=== PATIENT | female | born 1960 | race Caucasian/White ===

== ENCOUNTER 2022-05-05 11:13 | Inpatient (IN) | payer OTHER ==
[~2022-05-05] VITALS: Ht 157.5 cm; Wt 65.9 kg
[2022-05-05 12:13] LABS: BASOPHILS % (AUTO) 0.4 % (0-1); EOSINOPHILS # (AUTO) 0.1 X10'3 (0-0.9); EOSINOPHILS % (AUTO) 0.7 % (0-6); HEMATOCRIT 43.9 % (35.0-45.0); HEMOGLOBIN 14.8 g/dl (12.0-16.0); LYMPHOCYTES # (AUTO) 1.4 X10'3 (1.1-4.8); LYMPHOCYTES % (AUTO) 12.3 % (21-51); MEAN CORPUSCULAR HEMOGLOBIN 29.4 PG (27.0-31.0); MEAN CORPUSCULAR HGB CONC 33.8 g/dL (33.0-36.5); MEAN CORPUSCULAR VOLUME 87.1 FL (78-98); MONOCYTES # (AUTO) 2.2 X10'3 (0-0.9); MONOCYTES % (AUTO) 18.8 % (2-12); NEUTROPHILS # (AUTO) 7.9 X10'3 (1.8-7.7); NEUTROPHILS % (AUTO) 67.8 % (42-75); PLATELET COUNT 483 X10'3 (140-440); RED BLOOD COUNT 5.04 X10'6 (4.20-5.60); RED CELL DISTRIBUTION WIDTH 13.3 % (11.5-14.5); WHITE BLOOD COUNT 11.7 X10'3 (4.5-11.0)
[2022-05-05 12:27] LABS: LARGE PLATELETS FEW; PLATELET ESTIMATE INCREASED; TOTAL CELLS COUNTED 100
[2022-05-05 12:28] LABS: ALANINE AMINOTRANSFERASE 17 U/L (12-78); ALBUMIN 3.8 G/DL (3.4-5.0); ALBUMIN/GLOBULIN RATIO 1.1 (1.1-1.5); ALKALINE PHOSPHATASE 46 IU/L (46-116); ANION GAP 8 (8-16); ASPARTATE AMINO TRANSFERASE 16 U/L (10-37); BLOOD UREA NITROGEN 30 MG/DL (7-18); BUN/CREATININE RATIO 33.3 (6.6-38.0); CALCIUM 9.2 MG/DL (8.5-10.1); CHLORIDE 92 MMOL/L (99-107); GLUCOSE 103 MG/DL (70-104); LIPASE 273 U/L (73-393); POTASSIUM 4.1 MMOL/L (3.5-5.1); SODIUM 131 MMOL/L (135-145); TOTAL PROTEIN 7.3 G/DL (6.4-8.2); eGFR 63 ML/MIN
[2022-05-05] MEDS ORDERED: iohexol 300mg/ml 100ml inj. ONE (18:30)
[2022-05-05] MEDS ORDERED: acetaminophen 325mg tablet PO ONE (19:40)
[2022-05-05 19:57] LABS: CLARITY,URINE CLEAR (Clear); COLOR,URINE YELLOW (Yellow); GLUCOSE, URINE NEGATIVE (Neg); KETONES,URINE 15 mg/dl (Neg); LEUKOCYTE ESTERASE ,URINE NEGATIVE (Neg); NITRITES, URINE NEGATIVE (Neg); OCCULT BLOOD,URINE TRACE-INTACT (Neg); PROTEIN,URINE NEGATIVE (Neg); UROBILINOGEN,URINE 0.2 E.U/dL (0.2-1.0)
[2022-05-05 19:59] LABS: URINE HCG NEGATIVE (NEG)
[2022-05-05 20:01] LABS: UA COLLECTION TYPE VOIDED
[2022-05-05 20:07] LABS: RBC,URINE 0-2 /HPF (0-2)
[2022-05-05 20:11] LABS: BACTERIA,URINE FEW /HPF (Neg)
[2022-05-05 20:12] LABS: SQUAMOUS EPITHELIAL CELL,UR FEW /LPF (FEW)
[2022-05-05] MEDS ORDERED: mag hydrox/Alum hydrox/simeth 30ml oral suspension PO PRN (22:15)
[2022-05-05] MEDS ORDERED: magnesium hydroxide 30ml (MOM) UD suspension PO PRN (22:15)
[2022-05-05] MEDS ORDERED: HYDROcodone/acetaminophen 10/325mg tab PO PRN (22:15)
[2022-05-05] MEDS ORDERED: HYDROmorphone inj. 0.5 MG/0.5 ML DISP.SYRIN IV PRN (22:15)
[2022-05-05] MEDS ORDERED: acetaminophen 325mg tablet PO PRN ×2 (22:15)
[2022-05-05] MEDS ORDERED: ondansetron/PF 4mg/2ml inj IV PRN (22:15)
[2022-05-05] MEDS ORDERED: bisacodyl 10mg suppository rectal RC PRN (22:15)
[2022-05-05] MEDS ORDERED: ondansetron 4mg rapidly disintigrating tab PO PRN (22:15)
[2022-05-05] MEDS ORDERED: HYDROcodone/acetaminophen 5mg/325mg tablet PO PRN (22:15)
[2022-05-05] MEDS ORDERED: diphenhydrAMINE 50 mg/ml inj IV PRN (22:15)
[2022-05-05] MEDS ORDERED: diphenhydrAMINE 25mg capsule PO PRN (22:15)
[2022-05-05] MEDS ORDERED: morphine 2 MG/ML inj. syringe IV PRN ×2 (22:15)
[2022-05-05] MEDS ORDERED: acetaminophen 650mg rectal suppository RC PRN (22:15)
[2022-05-05] MEDS: normal saline 1000ml 1,000 ML IV SCH (22:33)
[2022-05-05 23:08] LABS: APTT 32 SECONDS (22-32)
[2022-05-05 23:18] LABS: CREATINE KINASE 35 U/L (26-192); MAGNESIUM 2.1 MG/DL (1.5-2.4); PHOSPHORUS 3.3 MG/DL (2.3-4.5)
[2022-05-06] MEDS ORDERED: LISI10TA27 PO (03:11)
[2022-05-06] MEDS ORDERED: CLOB25SO7 TOP (03:11)
[2022-05-06] MEDS: pantoprazole 40mg Tablet.DR PO SCH (06:23)
[2022-05-06] MEDS: heparin, porcine 5000 units/ml vial SQ SCH ×2 (06:23→23:30)
[2022-05-06] MEDS ORDERED: docusate sod 100mg capsule PO SCH (08:00)
[2022-05-06 08:15] LABS: BASOPHILS % (AUTO) 0.3 % (0-1); EOSINOPHILS # (AUTO) 0.1 X10'3 (0-0.9); EOSINOPHILS % (AUTO) 1.3 % (0-6); HEMATOCRIT 40.4 % (35.0-45.0); HEMOGLOBIN 13.6 g/dl (12.0-16.0); LYMPHOCYTES # (AUTO) 1.5 X10'3 (1.1-4.8); LYMPHOCYTES % (AUTO) 14.4 % (21-51); MEAN CORPUSCULAR HEMOGLOBIN 29.5 PG (27.0-31.0); MEAN CORPUSCULAR HGB CONC 33.7 g/dL (33.0-36.5); MEAN CORPUSCULAR VOLUME 87.3 FL (78-98); MEAN PLATELET VOLUME 8.1 FL (7.4-10.4); MONOCYTES # (AUTO) 1.9 X10'3 (0-0.9); MONOCYTES % (AUTO) 18.1 % (2-12); NEUTROPHILS # (AUTO) 6.9 X10'3 (1.8-7.7); NEUTROPHILS % (AUTO) 65.9 % (42-75); PLATELET COUNT 371 X10'3 (140-440); RED BLOOD COUNT 4.62 X10'6 (4.20-5.60); RED CELL DISTRIBUTION WIDTH 13.4 % (11.5-14.5); WHITE BLOOD COUNT 10.5 X10'3 (4.5-11.0)
[2022-05-06 08:25] LABS: ALANINE AMINOTRANSFERASE 12 U/L (12-78); ALBUMIN 3.2 G/DL (3.4-5.0); ALBUMIN/GLOBULIN RATIO 1.1 (1.1-1.5); ALKALINE PHOSPHATASE 40 IU/L (46-116); ANION GAP 7 (8-16); ASPARTATE AMINO TRANSFERASE 18 U/L (10-37); BILIRUBIN,TOTAL 0.7 MG/DL (0.1-1.0); BLOOD UREA NITROGEN 23 MG/DL (7-18); BUN/CREATININE RATIO 33.3 (6.6-38.0); CALCIUM 8.7 MG/DL (8.5-10.1); CHLORIDE 95 MMOL/L (99-107); CREATININE 0.69 MG/DL (0.40-0.90); GLUCOSE 79 MG/DL (70-104); POTASSIUM 3.4 MMOL/L (3.5-5.1); SODIUM 132 MMOL/L (135-145); TOTAL CARBON DIOXIDE 29.7 MMOL/L (24-32); eGFR 86 ML/MIN
[2022-05-06] MEDS: normal saline 1000ml 1,000 ML IV SCH ×2 (08:59→19:05)
[2022-05-06] MEDS: lisinopril 10 MG tablet PO SCH (10:13)
[2022-05-06] MEDS: clobetasol propionate ointment 15gm TP SCH (10:14)
--- NOTE | 2022-05-06 12:39 | NUR ---
PT able to tollerate a cup of apple juice. Denies any n/v post drinking 8oz of fluids
--- NOTE | 2022-05-06 14:00 | NUR ---
PT HAD TO BE MOVED OUT OF [facility] INTO [facility]. PT IS STABLE, NO NOTED DISCOMFORT AT PRESENT.
--- NOTE | 2022-05-06 16:00 | NUR ---
PT'S DAUGHTER IS AT BEDSIDE, PT REQUESTING SOMETHING TO DRINK AND A COOL CLOTH FOR HER HEAD. PT PROVIDED A PITCHER OF WATER AND THE REQUESTED COOL CLOTH. PT CONTINUE TO BE STABLE, NO S/S OF DISTRESS NOTED.
[2022-05-07 04:37] LABS: BASOPHILS % (AUTO) 0.4 % (0-1); EOSINOPHILS # (AUTO) 0.2 X10'3 (0-0.9); EOSINOPHILS % (AUTO) 2.7 % (0-6); HEMATOCRIT 38.4 % (35.0-45.0); HEMOGLOBIN 12.9 g/dl (12.0-16.0); LYMPHOCYTES # (AUTO) 1.4 X10'3 (1.1-4.8); LYMPHOCYTES % (AUTO) 19.2 % (21-51); MEAN CORPUSCULAR HEMOGLOBIN 29.3 PG (27.0-31.0); MEAN CORPUSCULAR HGB CONC 33.5 g/dL (33.0-36.5); MEAN CORPUSCULAR VOLUME 87.4 FL (78-98); MEAN PLATELET VOLUME 8.8 FL (7.4-10.4); MONOCYTES # (AUTO) 1.2 X10'3 (0-0.9); MONOCYTES % (AUTO) 15.9 % (2-12); NEUTROPHILS # (AUTO) 4.5 X10'3 (1.8-7.7); NEUTROPHILS % (AUTO) 61.8 % (42-75); PLATELET COUNT 380 X10'3 (140-440); RED CELL DISTRIBUTION WIDTH 13.1 % (11.5-14.5); WHITE BLOOD COUNT 7.3 X10'3 (4.5-11.0)
[2022-05-07 04:50] LABS: ALANINE AMINOTRANSFERASE 16 U/L (12-78); ALBUMIN 3.2 G/DL (3.4-5.0); ALBUMIN/GLOBULIN RATIO 1.1 (1.1-1.5); ALKALINE PHOSPHATASE 39 IU/L (46-116); ANION GAP 6 (8-16); ASPARTATE AMINO TRANSFERASE 14 U/L (10-37); BILIRUBIN,TOTAL 0.5 MG/DL (0.1-1.0); BLOOD UREA NITROGEN 13 MG/DL (7-18); BUN/CREATININE RATIO 19.1 (6.6-38.0); CALCIUM 8.7 MG/DL (8.5-10.1); CHLORIDE 100 MMOL/L (99-107); CREATININE 0.68 MG/DL (0.40-0.90); GLUCOSE 90 MG/DL (70-104); POTASSIUM 3.5 MMOL/L (3.5-5.1); SODIUM 137 MMOL/L (135-145); TOTAL CARBON DIOXIDE 31.1 MMOL/L (24-32); TOTAL PROTEIN 6.1 G/DL (6.4-8.2); eGFR 87 ML/MIN
[2022-05-07 05:21] LABS: TOTAL CELLS COUNTED 100
[2022-05-07 05:22] LABS: PLATELET ESTIMATE NORMAL
[2022-05-07] MEDS: normal saline 1000ml 1,000 ML IV SCH ×2 (07:25→20:45)
[2022-05-07] MEDS: clobetasol propionate ointment 15gm TP SCH (08:00)
[2022-05-07] MEDS: lisinopril 10 MG tablet PO SCH ×2 (08:00→08:42)
--- NOTE | 2022-05-07 08:40 | NUR ---
Patient in room ED 14. I have received report from [facility] and had the opportunity to ask questions and assume patient care.
[2022-05-07] MEDS: pantoprazole 40mg Tablet.DR PO SCH (08:43)
[2022-05-07] MEDS: heparin, porcine 5000 units/ml vial SQ SCH ×2 (08:44→20:12)
[2022-05-07] MEDS: ciprofloxacin 250mg tablet PO SCH ×4 (09:15→20:12)
[2022-05-07 10:30] VITALS: BP 114/61
--- NOTE | 2022-05-07 18:40 | NUR ---
Problems reprioritized. Patient report given, questions answered & plan of care reviewed with SUDHA LERO[facility].
[2022-05-07] MEDS: diatr meglu/diatrizoate 30ml oral sol.-(3 dose) bottle PO SCH (21:18)
[2022-05-07 22:00] VITALS: BP 105/63
[2022-05-08 06:00] VITALS: BP_SYST 104; BP_SYST 119; BP_DIAS 59; BP_DIAS 67
--- NOTE | 2022-05-08 06:26 | NUR ---
Problems reprioritized. Patient report given, questions answered & plan of care reviewed with Tarcy LERO[facility]. Addendum: 05/08/22 at 0626 by Ludmila Morrison RN Amended: Links added.
[2022-05-08 06:39] LABS: BASOPHILS % (AUTO) 0.5 % (0-1); EOSINOPHILS # (AUTO) 0.2 X10'3 (0-0.9); EOSINOPHILS % (AUTO) 3.8 % (0-6); HEMATOCRIT 32.8 % (35.0-45.0); HEMOGLOBIN 11.3 g/dl (12.0-16.0); LYMPHOCYTES # (AUTO) 1.7 X10'3 (1.1-4.8); LYMPHOCYTES % (AUTO) 29.9 % (21-51); MEAN CORPUSCULAR HEMOGLOBIN 30.3 PG (27.0-31.0); MEAN CORPUSCULAR HGB CONC 34.3 g/dL (33.0-36.5); MEAN CORPUSCULAR VOLUME 88.4 FL (78-98); MEAN PLATELET VOLUME 9.3 FL (7.4-10.4); MONOCYTES # (AUTO) 0.9 X10'3 (0-0.9); MONOCYTES % (AUTO) 14.9 % (2-12); NEUTROPHILS # (AUTO) 2.9 X10'3 (1.8-7.7); NEUTROPHILS % (AUTO) 50.9 % (42-75); PLATELET COUNT 298 X10'3 (140-440); RED BLOOD COUNT 3.72 X10'6 (4.20-5.60); WHITE BLOOD COUNT 5.7 X10'3 (4.5-11.0)
[2022-05-08 06:49] LABS: ALANINE AMINOTRANSFERASE 16 U/L (12-78); ALBUMIN 2.7 G/DL (3.4-5.0); ALKALINE PHOSPHATASE 35 IU/L (46-116); ANION GAP 7 (8-16); ASPARTATE AMINO TRANSFERASE 17 U/L (10-37); BILIRUBIN,TOTAL 0.3 MG/DL (0.1-1.0); BLOOD UREA NITROGEN 9 MG/DL (7-18); BUN/CREATININE RATIO 15.3 (6.6-38.0); CALCIUM 8.4 MG/DL (8.5-10.1); CHLORIDE 106 MMOL/L (99-107); CREATININE 0.59 MG/DL (0.40-0.90); GLUCOSE 93 MG/DL (70-104); POTASSIUM 3.8 MMOL/L (3.5-5.1); SODIUM 141 MMOL/L (135-145); TOTAL CARBON DIOXIDE 27.9 MMOL/L (24-32); TOTAL PROTEIN 5.3 G/DL (6.4-8.2); eGFR > 90 ML/MIN
[2022-05-08] MEDS: clobetasol propionate ointment 15gm TP SCH (08:00)
[2022-05-08] MEDS: lisinopril 10 MG tablet PO SCH (08:43)
[2022-05-08] MEDS: pantoprazole 40mg Tablet.DR PO SCH (08:43)
[2022-05-08] MEDS: heparin, porcine 5000 units/ml vial SQ SCH (08:44)
[2022-05-08] MEDS: diatr meglu/diatrizoate 30ml oral sol.-(3 dose) bottle PO SCH ×2 (08:44→10:10)
[2022-05-08] MEDS ORDERED: CIPR250T4 PO (08:54)
[2022-05-08] MEDS ORDERED: iohexol 300mg/ml 100ml inj. ONE (09:07)
[2022-05-08 10:00] VITALS: BP 114/55
[2022-05-08] MEDS: ciprofloxacin 250mg tablet PO SCH (10:10)
--- NOTE | 2022-05-08 11:56 | NUR ---
PAGER ID: [phone] MESSAGE: Tracy Surg [phone] Re: [place] [id number] report up she would like to know if she can eat
--- NOTE | 2022-05-08 16:00 | NUR ---
Patient discharge instructions reviewed with patient and patient verbalized understanding. Patients IV dc'd cannula intact. Patient states she has all her belongings. Patient was taken to vehicle via wheelchair.
== END 2022-05-08 15:30 | disposition home or self-care (01) | DRG 389 ==
LOC: ER 11:14 → ED HOLD 22:16 → EDBEDREQ 05-07 04:56 → SUR 3N 05-07 10:05
PROVIDERS: ADMIT Family Medicine; ATTEND Internal Medicine
PROC: 0D9670Z Drainage of Stomach with Drainage Device, Via Natural or Artificial Opening (ICD-10-PCS; principal; 2022-05-05)
PROC: BW211ZZ Computerized Tomography (CT Scan) of Abdomen and Pelvis using Low Osmolar Contrast (ICD-10-PCS; 2022-05-05)
PROC: BW211ZZ Computerized Tomography (CT Scan) of Abdomen and Pelvis using Low Osmolar Contrast (ICD-10-PCS; 2022-05-08)
DX: K56.609 Unspecified intestinal obstruction, unspecified as to partial versus complete obstruction (principal); E87.1 Hypo-osmolality and hyponatremia; E27.8 Other specified disorders of adrenal gland; R16.1 Splenomegaly, not elsewhere classified; E86.1 Hypovolemia; I10 Essential (primary) hypertension; N28.1 Cyst of kidney, acquired; Z85.820 Personal history of malignant melanoma of skin; Z79.899 Other long term (current) drug therapy
CPT/HCPCS: 36415; 71045; 74177; 80053; 81001; 81025; 82550; 83690; 83735; 83880; 84100; 84443; 85007; 85025; 85610; 85730; 87077; 87088; 87186; 99285; G0378; J1200; J1644; J2270; J2405; J3490; J7030; Q9963; Q9967

== ENCOUNTER 2024-01-08 13:39 | Outpatient (CLI) | payer OTHER ==
[~2024-01-08 13:39] MED LIST: CIPR250T4 PO; CLOB25SO14 TOP; LISI10TA27 PO
[2024-01-08] MEDS ORDERED: iohexol 300mg/ml 100ml inj. ONE (14:05)
[2024-01-08 14:11] LABS: ANION GAP 8 (8-16); BLOOD UREA NITROGEN 9 MG/DL (7-18); BUN/CREATININE RATIO 12.3 (10.0-20.0); CALCIUM 9.6 MG/DL (8.5-10.1); CHLORIDE 100 MMOL/L (99-107); CREATININE 0.73 MG/DL (0.40-0.90); GLUCOSE 93 MG/DL (70-104); SODIUM 138 MMOL/L (135-145); TOTAL CARBON DIOXIDE 30.3 MMOL/L (24-32); eGFR 80 ML/MIN
== END 2024-01-08 23:59 | disposition home or self-care (01) ==
LOC: RAD 13:39
PROVIDERS: ATTEND Student in an Organized Health Care Education/Training Program
DX: R31.29 Other microscopic hematuria (principal); E27.9 Disorder of adrenal gland, unspecified
CPT/HCPCS: 36415; 74178; 80048; Q9967